=== PATIENT | male | born 1990 | race Caucasian/White ===

== ENCOUNTER 2020-02-09 12:50 | Emergency (ER) | payer SELFPAY ==
[~2020-02-09] VITALS: Ht 170.2 cm; Wt 71.7 kg
[2020-02-09 13:18] VITALS: BP 115/77
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
[2020-02-09 14:46] VITALS: BP 115/77
--- NOTE | 2020-02-09 14:46 | NUR ---
Patient discharged with v/s stable. Written and verbal after care instructions given and explained. Patient alert, oriented and verbalized understanding of instructions. Ambulatory with steady gait. All questions addressed prior to discharge. ID band removed. Patient advised to follow up with PMD. Rx of ROBAXIN, MOTRIN given. Patient educated on indication of medication including possible reaction and side effects. Opportunity to ask questions provided and answered.
== END 2020-02-09 14:46 | disposition home or self-care (01) ==
LOC: MED 12:50
DX: M54.6 Pain in thoracic spine (principal)
CPT/HCPCS: 72080; 99283

== ENCOUNTER 2021-06-02 07:49 | Emergency (ER) | payer OTHER ==
[~2021-06-02] VITALS: Ht 170.2 cm; Wt 71.2 kg
[2021-06-02 07:56] VITALS: BP 113/89
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
--- NOTE | 2021-06-02 08:01 | NUR ---
Patient ambulated to bed 07 with steady/even gait.
--- NOTE | 2021-06-02 08:06 | NUR ---
RAD at bedside
--- NOTE | 2021-06-02 08:15 | NUR ---
Dr. Amor is evaluating pt at bedside
--- NOTE | 2021-06-02 08:58 | NUR ---
Patient discharged with v/s stable. Written and verbal after care instructions given and explained for Contusion. Patient alert, oriented and verbalized understanding of instructions. Ambulatory with steady gait. All questions addressed prior to discharge. ID band removed. Patient advised to follow up with PMD. Rx of Ibuprofen given. Patient educated on indication of medication including possible reaction and side effects. Opportunity to ask questions provided and answered.
[2021-06-02] MEDS ORDERED: IBUP-2213 PO (09:02)
== END 2021-06-02 08:58 | disposition home or self-care (01) ==
LOC: MED 07:49
DX: S60.221A Contusion of right hand, initial encounter (principal); X58.XXXA Exposure to other specified factors, initial encounter; Y93.89 Activity, other specified; Y92.89 Other specified places as the place of occurrence of the external cause; Y99.8 Other external cause status
CPT/HCPCS: 73130; 99283

== ENCOUNTER 2021-09-23 09:54 | Emergency (ER) | payer OTHER ==
[~2021-09-23] VITALS: Ht 167.6 cm; Wt 66.2 kg
[~2021-09-23 09:54] MED LIST: IBUP-2213 PO
[2021-09-23 10:04] VITALS: BP 142/81
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
[2021-09-23] MEDS ORDERED: LID5T TP (12:32)
[2021-09-23] MEDS ORDERED: CYCL-711 PO (12:32)
[2021-09-23] MEDS ORDERED: IBUP-2213 PO (12:32)
[2021-09-23 12:50] VITALS: BP 134/74
--- NOTE | 2021-09-23 12:50 | NUR ---
Patient discharged with v/s stable. Written and verbal after care instructions ABOUT LOW BACK STRAIN given and explained. Patient alert, oriented and verbalized understanding of instructions. Ambulatory with steady gait. All questions addressed prior to discharge. ID band removed. Patient advised to follow up with PMD. Rx of FLEXERIL, IBUPROFEN AND LIDODERM PATCH given. Patient educated on indication of medication including possible reaction and side effects. Opportunity to ask questions provided and answered.
== END 2021-09-23 12:50 | disposition home or self-care (01) ==
LOC: MED 09:54
DX: S39.012A Strain of muscle, fascia and tendon of lower back, initial encounter (principal); X58.XXXA Exposure to other specified factors, initial encounter; Y93.89 Activity, other specified; Y92.89 Other specified places as the place of occurrence of the external cause; Y99.8 Other external cause status
CPT/HCPCS: 99283